=== PATIENT | male | born 1975 | race Caucasian/White ===

== ENCOUNTER 2019-12-22 19:45 | Emergency (ER) | payer MEDICAID ==
[~2019-12-22] VITALS: Ht 167.6 cm; Wt 83.9 kg
[2019-12-22 19:51] VITALS: Ht 167.6 cm; Wt 83.9 kg
[2019-12-22 20:27] VITALS: BP 140/80
== END 2019-12-22 20:27 | disposition home or self-care (01) ==
LOC: ED 19:45
DX: Z13.9 Encounter for screening, unspecified (principal); I10 Essential (primary) hypertension